=== PATIENT | male | born 1995 | race Caucasian/White ===

== ENCOUNTER 2018-03-25 10:28 | Emergency (ER) | payer OTHER ==
[~2018-03-25] VITALS: Ht 182.9 cm; Wt 78.0 kg
--- NOTE | 2018-03-25 11:41 | RAD ---
3 views left foot 03/25/2018 11:23 AM Indication: LT FOOT PAIN NO KNOWN INJURY X2 DAYS Comparison: None Findings: There is no acute fracture or dislocation. Articular surfaces are uninterruptedly and smooth. Soft tissues are unremarkable. Impression: No evidence of acute osseous abnormality. Electronically signed by: Masood Hess MD (03/25/2018 11:38 AM) [id number]
[2018-03-25] MEDS ORDERED: METH4TAB2 PO (11:54)
[2018-03-25] MEDS ORDERED: INDO75CA3 PO (11:54)
--- NOTE | 2018-03-25 11:54 | PHYS DOC ---
Past History Past Medical History: Anxiety Past Surgical History: No Surgical History Alcohol Use: Occasionally Drug Use: None Adult General Chief Complaint Chief Complaint: FOOT INJURY PAIN HPI HPI Patient is a 23 year old male who presents with complaining of left great toe and foot pain since yesterday as a constant pain that getting worse with walking and bearing weight. Patient denies injury and history of the same problem. Patient states he is left great toe is warm and tender. Review of Systems Review of Systems Constitutional: Denies fever or chills [] Eyes: Denies change in visual acuity, redness, or eye pain [] HENT: Denies nasal congestion or sore throat [] Respiratory: Denies cough or shortness of breath [] Cardiovascular: No additional information not addressed in HPI [] GI: Denies abdominal pain, nausea, vomiting, bloody stools or diarrhea [] : Denies dysuria or hematuria [] Musculoskeletal: Denies back pain, reports joint pain [] Integument: Denies rash or skin lesions [] Neurologic: Denies headache, focal weakness or sensory changes [] Endocrine: Denies polyuria or polydipsia [] All other systems were reviewed and found to be within normal limits, except as documented in this note. Allergies Allergies Allergies Coded Allergies Type Severity Reaction Last Updated Verified No Known Drug Allergies 03/25/18 No Physical Exam Physical Exam Constitutional: Well developed, well nourished, mild distress, non-toxic appearance. [] HENT: Normocephalic, atraumatic Eyes: PERRLA, EOMI, conjunctiva normal, no discharge. [] Neck: Normal range of motion, no tenderness, supple, no stridor. [] Cardiovascular:Heart rate regular rhythm, no murmur [] Lungs & Thorax: Bilateral breath sounds clear to auscultation [] Skin: Warm, dry, no erythema, no rash. [] Back: No tenderness, no CVA tenderness. [] Extremities: Edema and erythema and tenderness of left tarsal phalangeal joint of great toe without sign of injury Neurologic: Alert and oriented X 3, normal motor function, normal sensory function, no focal deficits noted. [] Psychologic: Affect normal, judgement normal, mood normal. [] Current Patient Data Vital Signs Vital Signs Date Time Temp Pulse Resp B/P (MAP) Pulse Ox O2 Delivery O2 Flow Rate FiO2 03/25/18 10:58 98.2 78 16 96 Room Air EKG EKG [] Radiology/Procedures Radiology/[place] [address] IMAGING REPORT Signed PATIENT: ITZEL ROMERO ACCOUNT: [id number] : 1995 LOCATION: ER AGE: 23 SEX: M EXAM STATUS: REG ER ORD. PHYSICIAN: JAIDEN MITCHELL MD REASON: pain PROCEDURE: FOOT LEFT 3V 3 views left foot 03/25/2018 11:23 AM Indication: LT FOOT PAIN NO KNOWN INJURY X2 DAYS Comparison: None Findings: There is no acute fracture or dislocation. Articular surfaces are uninterruptedly and smooth. Soft tissues are unremarkable. Impression: No evidence of acute osseous abnormality. Electronically signed by: Masood Dunn MD (03/25/2018 11:38 AM) [id number] DICTATED AND SIGNED BY: MASOOD DUNN MD DATE: 03/25/18 1136 CC: DARIO GIL MD; JAIDEN MITCHELL MD ~ Course & Med Decision Making Course & Med Decision Making Pertinent Imaging studies reviewed. (See chart for details) Evaluation of patient in ER showed 23-year-old male patient with left great toe pain and tenderness without injury. X-ray was unremarkable. Patient had sign of gouty arthritis and instructed to follow-up with his primary care physician if continued to have episodes of pain and avoid of eating red meat. Dragon Disclaimer Dragon Disclaimer This electronic medical record was generated, in whole or in part, using a voice recognition dictation system. Departure Departure: Impression: Primary Impression: Acute gout of left foot Disposition: HOME, SELF-CARE (at 1152) Condition: STABLE Referrals: DARIO GIL MD (PCP) Patient Instructions: Gout Additional Instructions: Drink plenty of liquids Follow-up with your primary care physician in 3-5 days Return to ER if not getting better Apply ice on affected area Scripts Indomethacin (INDOMETHACIN) 75 Mg Capsule.er 75 MG PO TID, #30 CAP.SR Prov: JAIDEN MITCHELL MD 03/25/18 Methylprednisolone (MEDROL) 4 Mg Tab.ds.pk 1 PKG PO UD, #1 PKG Prov: JAIDEN MITCHELL MD 03/25/18 JAIDEN MITCHELL MD Mar 25, 2018 11:54
[2018-03-25 12:02] VITALS: BP 115/65
== END 2018-03-25 12:03 | disposition home or self-care (01) ==
LOC: ER 10:28
DX: M10.9 Gout, unspecified (principal); M79.672 Pain in left foot; F41.9 Anxiety disorder, unspecified
CPT/HCPCS: 73630; 99284